=== PATIENT | male | born 1950 | race Two or more races ===

== ENCOUNTER 2023-03-28 23:00 | Emergency (ER) | payer OTHER ==
[~2023-03-28] VITALS: Ht 180.3 cm; Wt 90.8 kg
[2023-03-28 23:42] LABS: Basophils # (auto) 0.1 10 ^3/uL (0-0.2); Basophils % (auto) 0.9 % (0.0-2.0); Eosinophils # (auto) 0.4 10 ^3/uL (0-0.8); Eosinophils % (auto) 5.8 % (0.0-7.0); Hematocrit 47.2 % (41.0-53.0); Hemoglobin 15.7 g/dL (13.5-17.5); Lymphocytes # (auto) 1.7 10 ^3/uL (0.4-5.4); Lymphocytes % (auto) 26.2 % (10.0-50.0); Mean Corpuscular Hemoglobin 29.5 pg (28.0-32.0); Mean Corpuscular Hgb Conc. 33.2 g/dL (32.0-36.0); Mean Corpuscular Volume 88.9 fL (80.0-100.0); Monocytes # (auto) 0.6 10 ^3/uL (0-1.3); Monocytes % (auto) 9.3 % (0.0-12.0); Neutrophils # (auto) 3.8 10 ^3/uL (1.6-8.6); Neutrophils % (auto) 57.8 % (37.0-80.0); Nucleated Red Blood Cells % 0.1 %; Red Blood Cells 5.31 10^6/uL (4.5-5.90); White Blood Cell 6.5 10^3/uL (4.4-10.8)
[2023-03-29 00:05] LABS: INR 0.95 (0.9-1.15); Partial Thromboplastin Time 31.6 SEC (24.5-34.5)
[2023-03-29 00:10] LABS: Alanine Aminotransferase 29 U/L (7-40); Albumin 4.8 g/dL (3.2-4.8); Alkaline Phosphatase 107 U/L (46-116); Anion Gap 7 (5-15); Aspartate Aminotransferase 18 U/L (13-40); BUN/Creatinine Ratio 12.2 (10.0-20.0); Bilirubin, Total 0.7 mg/dL (0.2-1.0); Blood Urea Nitrogen 12 mg/dL (9-23); Calcium 9.2 mg/dL (8.7-10.4); Carbon Dioxide 25 mmol/L (20-30); Chloride 107 mmol/L (98-107); Glucose 114 mg/dL (74-106); Potassium 4.2 mmol/L (3.5-5.1); Sodium 139 mmol/L (136-145)
[2023-03-29 00:11] LABS: Total Protein 7.8 g/dL (5.7-8.2)
[2023-03-29 00:27] LABS: Urine WBC None Seen /hpf (0 - 3)
[2023-03-29 00:46] LABS: COVID19 ANTIGEN SOFIA FIA NEGATIVE (NEGATIVE)
[2023-03-29 00:47] LABS: Urine Bacteria NONE SEEN /hpf (None Seen); Urine Blood Negative /uL (Negative); Urine Clarity Clear (Clear); Urine Color Colorless (Yellow); Urine Protein, UAD Negative (Negative); Urine Specific Gravity 1.009 (1.001-1.035); Urine Urobilinogen Normal (Negative)
[2023-03-29 00:56] LABS: Amphetamine Screen, Urine Neg (NEGATIVE); Barbiturate Scree,Urine Neg (NEGATIVE); Benzodiazephine Screen, Urine Neg (NEGATIVE); Cannabinoid Screen, Urine Neg (NEGATIVE); Cocaine Screen, Urine Neg (NEGATIVE); Opiate Scree,Urine Neg (NEGATIVE); Phencyclidine Screen, Urine Neg (NEGATIVE)
[2023-03-29 00:58] LABS: Rapid Influenza A Negative (Negative); Rapid Influenza B Negative (Negative)
[2023-03-29] MEDS ORDERED: ALBU108A5 IN (01:57)
[2023-03-29] MEDS ORDERED: ASPirin 325 MG TAB PO ONE (03:15)
[2023-03-29] MEDS ORDERED: ENOXAPARIN SOD 100 MG/1 ML SYRINGE SC ONE (03:15)
[2023-03-29] MEDS ORDERED: hydrALAZINE HCL 20 MG/ML VL IV PRN ×2 (04:30→06:45)
[2023-03-29] MEDS ORDERED: ALBUTEROL SULF 2.5 MG/0.5ML(0.5%) NEB SOLN NEB PRN (06:45)
[2023-03-29] MEDS ORDERED: ONDANSETRON HCL 4 MG/2 ML VIAL IV PRN (06:45)
[2023-03-29] MEDS ORDERED: amLODIPine BESYLATE 5 MG TAB PO ONE (07:00)
[2023-03-29 07:10] VITALS: BP 147/80; PULSE 58; RESP 18; TEMP 97.6; O2SAT 97
[2023-03-29 07:49] LABS: Triglycerides 164 mg/dL (< 150)
[2023-03-29 07:50] LABS: LDL Cholesterol 144 mg/dL (< 100)
[2023-03-29 07:51] LABS: Cholesterol 200 mg/dL (< 200); HDL Cholesterol 39 mg/dL (40-59)
[2023-03-29 08:45] VITALS: PULSE 54; RESP 10; TEMP 98.7; O2SAT 99
[2023-03-29] MEDS ORDERED: ASPirin-EC 81 mg tab PO SCH (10:00)
[2023-03-29] MEDS: ENOXAPARIN SOD 100 MG/1 ML SYRINGE SC SCH ×2 (10:00→10:17)
[2023-03-29] MEDS ORDERED: AML5T PO (17:01)
[2023-03-29] MEDS ORDERED: ASPI-543 PO (17:01)
[2023-03-29] MEDS ORDERED: ROSU20TA14 PO (17:13)
[2023-03-29 17:14] VITALS: BP 136/76; PULSE 61; RESP 18; O2SAT 95
[2023-03-29] MEDS ORDERED: ATORVASTATIN 20 MG TAB PO SCH (22:00)
[2023-03-30] MEDS ORDERED: amLODIPine BESYLATE 5 MG TAB PO SCH (10:00)
== END 2023-03-29 17:35 | disposition home or self-care (01) ==
LOC: ER 23:00
DX: R07.89 Other chest pain (principal); R06.02 Shortness of breath; Z79.899 Other long term (current) drug therapy
CPT/HCPCS: 36415; 71045; 80053; 80061; 80307; 81001; 83735; 83880; 84484; 85025; 85379; 85610; 85730; 87426; 87804; 93005; 93306; 96372; 99285; J1650

== ENCOUNTER 2024-06-18 15:52 | Emergency (ER) | payer OTHER ==
[~2024-06-18] VITALS: Ht 180.3 cm; Wt 135.0 kg
[~2024-06-18 15:52] MED LIST: ALBU108A5 IN; AML5T PO; ASPI-543 PO; ROSU20TA14 PO
--- NOTE | 2024-06-18 16:11 | ED.PDOC ---
HPI Comments 73-year-old male who presents to the emergency department with chest pressure and shortness of breath especially at night for the past 3 nights. He states he has been having to get up due to inability to sleep from shortness of breath. He at this time has pressure-like pain, 6/10, nonradiating. He reports 1 week ago he became so dizzy that he fell. He denies full syncope. Denies any recent travel. He has had for the past week and a half family at home has had flu-like symptoms. He has an appointment with his PCP tomorrow. He has a history of COVID in the past. Past medical history also includes hyperlipidemia, hypertension. Denies history of diabetes. Chief Complaint: Chest Pain Time Seen by MD: 15:55 Primary Care Provider: ZAK Allergies: Coded Allergies: NO KNOWN ALLERGIES (Unverified , 03/28/23) Home Meds Active Scripts Rosuvastatin Calcium (Crestor) 20 Mg Tab, 1 TAB PO DAILY, #90 TAB 0 Refills Prov:LAINE BOWENS MD 03/29/23 Aspirin (Aspir-Low) 81 Mg Tab, 81 MG PO DAILY for 90 Days, #90 TAB Prov:LAINE BOWENS MD 03/29/23 Amlodipine Besylate (NORVASC TABLET) 5 Mg Tb, 5 MG PO DAILY for 90 Days, #90 TAB Prov:LAINE BOWENS MD 03/29/23 Albuterol Sulfate (Albuterol Sulfate Hfa) 108 Mcg/Act Aer, 108 MCG IN Q4HP PRN, #1 AER Prov:LUCAS MCCORMACK PAC 03/29/23 Mode of Arrival: Ambulatory Vital Signs Vital Signs Date Time Temp Pulse Resp B/P (MAP) Pulse Ox O2 Delivery O2 Flow Rate FiO2 06/18/24 18:58 97.6 69 18 137/79 (98) 97 97.6 06/18/24 16:17 Room Air Physical Exam General: Awake, alert and oriented. No acute distress. Skin: Skin in warm, dry and intact. Appropriate color for ethnicity. Nailbeds pink with no cyanosis. HEENT: The head is normocephalic and atraumatic. Conjunctivae are clear without exudates or hemorrhage. Sclera is non-icteric. EOM are intact. No signs of nystagmus. Eyelids are normal in appearance without swelling or lesions. Oral mucosa is pink and moist Neck: The neck is supple with normal range of motion. No JVD. Cardiac: Heart rate and rhythm are normal. No murmurs, gallops, or rubs are auscultated. Respiratory: No signs of respiratory distress. Lung sounds are clear in all lobes bilaterally without rales, ronchi, or wheezes. Abdominal: Abdomen is soft, non-tender without distention. Bowel sounds are present and normoactive in all four quadrants. Extremities: Upper and lower extremities are atraumatic in appearance without deformity or edema. Neurological: The patient is awake, alert and oriented to person, place, and time with normal speech. Speech is clear. There is no facial asymmetry. Psychiatric: Appropriate mood and affect. Good judgement and insight. No visual or auditory hallucinations. Review of Systems: REVIEW OF SYSTEMS: No fever, no chills, or fatigue HEENT: No sore throat, no earache, positive congestion, positive rhinorrhea no neck pain. No vision changes Cardiac: Positive chest pain. No palpitations. Lungs: Positive shortness of breath, positive orthopnea, positive cough. GI: Positive nausea, no vomiting, no diarrhea, no constipation, no abdominal pain : No dysuria, frequency, or urgency. No hematuria. Musculoskeletal: No joint pain , no joint swelling, no extremity edema. Positive myalgias Skin: No rash, no itching. Neuro: No headache, positive dizziness, positive general weakness, denies focal weakness Past Medical History PAST MEDICAL HISTORY: Denies Surgical History: Denies all surgeries Family History Family History: Reviewed,noncontributory to illness, No family hx of Cancer, No family hx of DM, No family hx of Heart usman, No family hx of HTN, No family hx ofKidney usman, No family hx of Liver usman, No family hx of Lung usman, No family hx of Stroke Social History Smoker: Non-Smoker Alcohol: Denies ETOH Use Drugs: Denies Drug Use Lives In: Home EKG EKG : Comments EKG independent interpretation sinus rhythm, no STEMI QTC 402, low voltage precordial leads Was a procedure done? Was a procedure done?: No CP Differential Dx Differential Diagnosis: Other (Differential diagnoses considered include acute ischemic coronary syndrome, aortic dissection, cardiac tamponade, mediastinitis, pulmonary embolus, pneumothorax, tension pneumothorax, esophageal rupture, coronary artery vasospasm, myocarditis, pericarditis, pneumonia, pulmonary edema, esophageal tear, pancreatitis, aortic stenosis, dilated cardiomyopathy, hypertrophic cardiomyopathy, mitral valve prolapse, malignancy, pleuritis, pneumomediastinum, primary pulmonary hypertension, cholecystitis, esophageal spasm, esophagus, gastritis, GERD, peptic ulcer disease, costochondritis, fibromyalgia, rib fracture, herpes zoster, radicular syndromes, thoracic outlet syndrome, somatization.) X-Ray, Labs, Meds, VS Vital Signs Date Time Temp Pulse Resp B/P (MAP) Pulse Ox O2 Delivery O2 Flow Rate FiO2 06/18/24 18:58 97.6 69 18 137/79 (98) 97 97.6 06/18/24 18:50 61 06/18/24 16:55 63 06/18/24 16:17 97.5 82 16 112/77 (89) 99 97.5 06/18/24 16:17 82 16 99 Room Air 06/18/24 15:59 98.1 78 16 140/76 (97) 97 06/18/24 15:57 69 Lab Test 06/18/24 18:03 06/18/24 16:15 06/18/24 16:03 Range/Units Troponin I High Sensitivity 20 21 </=54 ng/L Influenza Type A Antigen Negative Negative Influenza Type B Antigen Negative Negative SARS-CoV-2 Antigen (Rapid) Negative NEGATIVE White Blood Count 5.7 4.4-10.8 10^3/uL Red Blood Count 5.28 4.5-5.90 10^6/uL Hemoglobin 15.6 13.5-17.5 g/dL Hematocrit 46.2 41.0-53.0 % Mean Corpuscular Volume 87.5 80.0-100.0 fL Mean Corpuscular Hemoglobin 29.6 28.0-32.0 pg Mean Corpuscular Hemoglobin Concent 33.8 32.0-36.0 g/dL Red Cell Distribution Width 12.8 11.8-14.3 % Platelet Count 304 140-450 10^3/uL Mean Platelet Volume 7.7 6.9-10.8 fL Neutrophils (%) (Auto) 60.1 37.0-80.0 % Lymphocytes (%) (Auto) 26.7 10.0-50.0 % Monocytes (%) (Auto) 10.4 0.0-12.0 % Eosinophils (%) (Auto) 2.3 0.0-7.0 % Basophils (%) (Auto) 0.5 0.0-2.0 % Neutrophils # (Auto) 3.4 1.6-8.6 10 ^3/uL Lymphocytes # (Auto) 1.5 0.4-5.4 10 ^3/uL Monocytes # (Auto) 0.6 0-1.3 10 ^3/uL Eosinophils # (Auto) 0.1 0-0.8 10 ^3/uL Basophils # (Auto) 0 0-0.2 10 ^3/uL Nucleated Red Blood Cells 0.1 % Erythrocyte Sedimentation Rate 4 0-20 mm/hr Sodium Level 138 136-145 mmol/L Potassium Level 4.1 3.5-5.1 mmol/L Chloride Level 106 98-107 mmol/L Carbon Dioxide Level 25 20-31 mmol/L Anion Gap 7 5-15 Blood Urea Nitrogen 14 9-23 mg/dL Creatinine 1.09 0.700-1.30 mg/dL Glomerular Filtration Rate Calc 72 >90 mL/min BUN/Creatinine Ratio 12.8 10.0-20.0 Serum Glucose 107 H 74-106 mg/dL Calcium Level 10.0 8.7-10.4 mg/dL Total Bilirubin 1.0 0.2-1.0 mg/dL Aspartate Amino Transferase (AST) 27 13-40 U/L Alanine Aminotransferase (ALT) 40 7-40 U/L Alkaline Phosphatase 91 46-116 U/L C-Reactive Protein High Sensitivity 0.06 <1.0 mg/dL B-Type Natriuretic Peptide 9.93 0-100 pg/mL Total Protein 7.6 5.7-8.2 g/dL Albumin 4.7 3.2-4.8 g/dL Current Medications Medications (Trade) Dose Ordered Sig/Gloria Route Start Time Stop Time Status Last Admin Aspirin 324 mg ONCE ONCE PO 06/18/24 16:15 06/18/24 16:16 DC 06/18/24 16:17 Acetaminophen (Tylenol Tablet Or Capsule) 1,000 mg ONCE ONCE PO 06/18/24 16:15 06/18/24 16:16 DC 06/18/24 16:17 Sodium Chloride 1,000 ml @ 1,000 mls/hr Q1H ONCE IV 06/18/24 16:15 06/18/24 17:14 DC 06/18/24 16:32 Time of 1ST Reevaluation: 16:07 Reevaluation 1ST: Unchanged Patient Education/Counseling: Need For Follow Up Family Education/Counseling: No Family Present Departure 1 Departure Time of Disposition: 18:49 Impression: Primary Impression: Chest pain Disposition: 01 HOME / SELF CARE / HOMELESS Condition: Stable Additional Instructions: ED DISCHARGE INSTRUCTIONS Instructions: Please read all instructions provided in this packet carefully. Although you have been discharged from the Emergency Department, this does not mean that you have a "clean bill of health". No definitive diagnosis for your symptoms has been made today. It is possible that you are in the process of developing a serious illness. This is why you must return to the ED without fail if any new or worsening symptoms (especially if your symptoms include chest pain, trouble breathing, abdominal pain, fever, headache, confusion, trouble seeing, or trouble walking) Keep appointment with the primary care provider tomorrow as previously scheduled. If you are unable to get an appointment, return to the ED for re-evaluation. CHEST PAIN EDUCATION There are many things that can cause chest pain. Some are not serious and will get better on their own in a few days. But some kinds of chest pain need more testing and treatment. Your doctor may have recommended a follow-up visit in the next few days. If you are not getting better, you may need more tests or treatment. Even though your doctor has released you, you still need to watch for any problems. The doctor carefully checked you, but sometimes problems can develop later. If you have new symptoms or if your symptoms do not get better, get medical care right away. If you have worse or different chest pain or pressure that lasts more than 5 minutes or you passed out (lost consciousness), call 911 or seek other emergency help right away. A medical visit is only one step in your treatment. Even if you feel better, you still need to do what your doctor recommends, such as going to all suggested follow-up appointments and taking medicines exactly as directed. This will help you recover and help prevent future problems. How can you care for yourself at home? Rest until you feel better. Take your medicine exactly as prescribed. Call your doctor if you think you are having a problem with your medicine. Do not drive after taking a prescription pain medicine. When should you call for help? Call 911 if: You passed out (lost consciousness). You have severe difficulty breathing. You have symptoms of a heart attack. These may include: Chest pain or pressure, or a strange feeling in your chest. Sweating. Shortness of breath. Nausea or vomiting. Pain, pressure, or a strange feeling in your back, neck, jaw, or upper belly or in one or both shoulders or arms. Lightheadedness or sudden weakness. A fast or irregular heartbeat. After you call 911, the blow mold operator may tell you to chew 1 adult-strength or 2 to 4 low-dose aspirin. Wait for an ambulance. Do not try to drive yourself. Call your doctor now or seek immediate medical care if: You have any trouble breathing. You have new or different chest pain. You are dizzy or lightheaded, or you feel like you may faint. Watch closely for changes in your health, and be sure to contact your doctor if you do not get better as expected. Current as of: January 01, 2024 Author: [employer] Staff? Comments 73-year-old male with chest pain and shortness of breath. EKG negative for signs of ischemia x 2. High sensitivity troponin negative x 2. CXR shows no acute process. Presentation not suggestive of acute coronary syndrome, pulmonary embolism or aortic dissection. Patient improved at time of discharge. No hypoxia, respiratory distress or dyspnea at discharge. Patient able to ambulate without difficulty. Patient well-appearing, nontoxic. Advised prompt follow-up with PCP, return to the ED with any new, worsening or concerning symptoms. I reviewed the following notes from the pt's past medical encounters: Encounter 03/2023 for NSTEMI The following tests were ordered, and results were reviewed by me: (See diagnostic results section) The following test were independently interpreted by me: EKG, chest x-ray-no acute disease Additional information was gathered from interviewing the following independent historians: (N/A) I reviewed and agreed with the following test results read by other providers: Chest x-ray I discussed treatments and results with medical personnel and: N/A Decision regarding hospitalization or escalation of hospital level of care: Risks and benefits of admission for further treatment of patient's condition was considered however due to patient's stable condition patient will be discharged to follow up closely or return to care for worsening of condition or inability to follow up. Critical Care Note Critical Care Time?: No Stability Stability form required: No Heart Score Heart Score: Heart Score Response (Comments) Value History Slightly Suspicious 0 EKG Normal 0 Age >65 2 Risk Factors 1 or 2 risk factors 1 Troponin Normal limit 0 Total 3 BOZENA GALO MD Jun 18, 2024 16:11
[2024-06-18] MEDS: ACETAMINOPHEN 500 MG TAB or CAP PO ONE (16:17)
[2024-06-18] MEDS: ASPirin 81 mg TAB PO ONE (16:17)
--- NOTE | 2024-06-18 16:19 | DVH ---
CHEST RADIOGRAPH Indication: Chest pain Technique: Single frontal view of the chest was obtained COMPARISON: XY CHEST PORTABLE on DOS: 03/28/23 FINDINGS: Lines and Tubes: None Lungs: Clear Pleura: No effusion. No pneumothorax. Cardiomediastinal contours: Unremarkable Bones: Unremarkable IMPRESSION: No acute disease.
[2024-06-18] MEDS: SODIUM CHLORIDE 0.9% 1,000 ML IV ONE (16:32)
[2024-06-18 16:46] LABS: Basophils # (auto) 0 10 ^3/uL (0-0.2); Basophils % (auto) 0.5 % (0.0-2.0); Eosinophils # (auto) 0.1 10 ^3/uL (0-0.8); Eosinophils % (auto) 2.3 % (0.0-7.0); Hematocrit 46.2 % (41.0-53.0); Hemoglobin 15.6 g/dL (13.5-17.5); Lymphocytes # (auto) 1.5 10 ^3/uL (0.4-5.4); Lymphocytes % (auto) 26.7 % (10.0-50.0); Mean Corpuscular Hemoglobin 29.6 pg (28.0-32.0); Mean Corpuscular Hgb Conc. 33.8 g/dL (32.0-36.0); Mean Corpuscular Volume 87.5 fL (80.0-100.0); Monocytes # (auto) 0.6 10 ^3/uL (0-1.3); Monocytes % (auto) 10.4 % (0.0-12.0); Neutrophils # (auto) 3.4 10 ^3/uL (1.6-8.6); Neutrophils % (auto) 60.1 % (37.0-80.0); Nucleated Red Blood Cells % 0.1 %; Platelet Count (auto) 304 10^3/uL (140-450); Red Blood Cells 5.28 10^6/uL (4.5-5.90); Red Cell Distribution Width 12.8 % (11.8-14.3); White Blood Cell 5.7 10^3/uL (4.4-10.8)
[2024-06-18 16:53] LABS: Albumin 4.7 g/dL (3.2-4.8); Alkaline Phosphatase 91 U/L (46-116); Anion Gap 7 (5-15); Aspartate Aminotransferase 27 U/L (13-40); BUN/Creatinine Ratio 12.8 (10.0-20.0); Blood Urea Nitrogen 14 mg/dL (9-23); Carbon Dioxide 25 mmol/L (20-31); Chloride 106 mmol/L (98-107); Potassium 4.1 mmol/L (3.5-5.1); Sodium 138 mmol/L (136-145); Total Protein 7.6 g/dL (5.7-8.2)
--- NOTE | 2024-06-18 16:53 | ECG ---
[facility] Test Date: 2024-06-18 Test Time: 15:57:27 Pat Name: LINDSEY VILLAGRAN Department: ER Room: Gender: M Manager Field: EDY : 1950 Requested By: BOZENA GALO Order Number: [id number] Reading MD: Measurements Intervals [place] Rate: 69 P: 27 TX: 194 QRS: -1 QRSD: 84 T: 18 QT: 375 QTc: 402 Interpretive Statements Sinus rhythm Low voltage, precordial leads Please click the below link to view image of tracing.
[2024-06-18 16:54] LABS: Alanine Aminotransferase 40 U/L (7-40); Glucose 107 mg/dL (74-106)
[2024-06-18 17:20] LABS: COVID19 ANTIGEN SOFIA FIA NEGATIVE (NEGATIVE); Rapid Influenza A Negative (Negative); Rapid Influenza B Negative (Negative)
[2024-06-18 18:28] LABS: Erythrocyte Sedimentation Rate 4 mm/hr (0-20)
[2024-06-18 18:58] VITALS: BP 137/79; PULSE 69; RESP 18; TEMP 97.6; O2SAT 97
--- NOTE | 2024-06-19 07:18 | ECG ---
[facility] Test Date: 2024-06-18 Test Time: 16:53:27 Pat Name: LINDSEY VILLAGRAN Department: ED Room: Gender: M Top Screw: DANA : 1950 Requested By: BOZENA GALO Order Number: [id number] Reading MD: Measurements Intervals [place] Rate: 65 P: -4 VA: 195 QRS: -12 QRSD: 188 T: -3 QT: 382 QTc: 398 Interpretive Statements Sinus rhythm Nonspecific intraventricular conduction delay Inferior infarct, old Lateral infarct, acute Artifact in lead(s) I,II,III,aVR,aVL,aVF Please click the below link to view image of tracing.
--- NOTE | 2024-06-19 07:18 | ECG ---
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
--- NOTE | 2024-06-19 15:26 | ECG ---
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
== END 2024-06-18 18:58 | disposition home or self-care (01) ==
LOC: ER 15:52
DX: R07.89 Other chest pain (principal); I10 Essential (primary) hypertension; E78.5 Hyperlipidemia, unspecified; Z20.822 Contact with and (suspected) exposure to COVID-19; Z79.82 Long term (current) use of aspirin; Z79.899 Other long term (current) drug therapy
CPT/HCPCS: 36415; 71045; 80053; 83880; 84484; 85025; 85652; 86141; 87426; 87804; 93005; 96360; 99285; J7030

== ENCOUNTER 2024-09-03 08:55 | Inpatient (IN) | payer OTHER ==
[2024-09-03] VITALS (7 sets, daily range): BP systolic 120–147; BP diastolic 71–85; PULSE 55–65; RESP 12–20; TEMP 98–98.3; O2SAT 95–100
[~2024-09-03] VITALS: Ht 180.3 cm; Wt 89.8 kg
[2024-09-03 10:08] LABS: Urine Bacteria None Seen /hpf (None Seen)
[2024-09-03 10:17] LABS: Urine Blood 2+ /uL (Negative); Urine Clarity Clear (Clear); Urine Color Yellow (Yellow); Urine Mucus FEW (None Seen); Urine Protein, UAD TRACE (Negative); Urine Specific Gravity 1.025 (1.001-1.035); Urine Squamous Epithelial Cell FEW /hpf (<5); Urine Urobilinogen Normal (Negative); Urine WBC 1 /HPF (0-3); Urine pH 5.5 (5.0-9.0)
[2024-09-03 10:21] LABS: Basophils # (auto) 0 10 ^3/uL (0-0.2); Basophils % (auto) 0.5 % (0.0-2.0); Eosinophils # (auto) 0.1 10 ^3/uL (0-0.8); Eosinophils % (auto) 1.8 % (0.0-7.0); Hematocrit 46.1 % (41.0-53.0); Hemoglobin 15.8 g/dL (13.5-17.5); Lymphocytes # (auto) 1.5 10 ^3/uL (0.4-5.4); Lymphocytes % (auto) 26.8 % (10.0-50.0); Mean Corpuscular Hemoglobin 30.5 pg (28.0-32.0); Mean Corpuscular Hgb Conc. 34.3 g/dL (32.0-36.0); Mean Corpuscular Volume 88.8 fL (80.0-100.0); Monocytes # (auto) 0.6 10 ^3/uL (0-1.3); Monocytes % (auto) 10.5 % (0.0-12.0); Neutrophils # (auto) 3.4 10 ^3/uL (1.6-8.6); Neutrophils % (auto) 60.4 % (37.0-80.0); Nucleated Red Blood Cells % 0.1 %; Platelet Count (auto) 252 10^3/uL (140-450); Red Blood Cells 5.19 10^6/uL (4.5-5.90); Red Cell Distribution Width 13.4 % (11.8-14.3); White Blood Cell 5.6 10^3/uL (4.4-10.8)
--- NOTE | 2024-09-03 10:31 | ED.PDOC ---
History of Present Illness HPI Comments 73 year old male presents to the ED with a chief complaint of RT eye drooping onset 5 days. Patient states he woke up 5 days ago, noticed RT eye was drooping with blurry vision. Went to see PCP today at 08:00, was sent to ED to rule out CVA. Patient noticed vision improves when he lifts eyelid. He also has been experiencing nasal congestion. Patient recently had a biopsy of prostate, pending results. Denies any PMHx as well as dizziness, headache, chest pain, shortness of breath, nausea, vomiting, diarrhea, fevers, chills. No other symptoms or modifying factors present at this time. Chief Complaint: General Weakness Time Seen by MD: 10:13 Primary Care Provider: BRENDA Beck Notes: Medications, Allergies Allergies: Coded Allergies: NO KNOWN ALLERGIES (Unverified , 03/28/23) Home Meds Active Scripts Rosuvastatin Calcium (Crestor) 20 Mg Tab, 1 TAB PO DAILY, #90 TAB 0 Refills Prov:LAINE BOWENS MD 03/29/23 Aspirin (Aspir-Low) 81 Mg Tab, 81 MG PO DAILY for 90 Days, #90 TAB Prov:LAINE BOWENS MD 03/29/23 Amlodipine Besylate (NORVASC TABLET) 5 Mg Tb, 5 MG PO DAILY for 90 Days, #90 TAB Prov:LAINE BOWENS MD 03/29/23 Albuterol Sulfate (Albuterol Sulfate Hfa) 108 Mcg/Act Aer, 108 MCG IN Q4HP PRN, #1 AER Prov:LUCAS MCCORMACK PAC 03/29/23 Information Source: Patient Mode of Arrival: Ambulatory Severity: Moderate Timing: Days Duration: Since onset Prehospital treatment: None Past Medical History PAST MEDICAL HISTORY: Denies Surgical History: Denies all surgeries Family History Family History: Reviewed,noncontributory to illness, No family hx of Cancer, No family hx of DM, No family hx of Heart usman, No family hx of HTN, No family hx ofKidney usman, No family hx of Liver usman, No family hx of Lung usman, No family hx of Stroke Social History Smoker: Non-Smoker Alcohol: Denies ETOH Use Drugs: Denies Drug Use Lives In: Home Constitutional: denies: chills, diaphoresis, fatigue, fever, malaise, sweats, weakness, others EENTM: reports: blurred vision, nose congestion, others (RT eye drooping); denies: double vision, ear bleeding, ear discharge, ear drainage, ear pain, ear ringing, eye pain, eye redness, hearing loss, mouth pain, mouth swelling, nasal discharge, nose bleeding, nose pain, photophobia, tearing, throat pain, throat swelling, voice changes Respiratory: denies: cough, hemoptysis, orthopnea, SOB at rest, shortness of breath, SOB with excertion, stridor, wheezing, others Cardiovascular: denies: chest pain, dizzy spells, diaphoresis, Dyspnea on exertion, edema, irregular heart beat, left arm pain, lightheadedness, palpitations, PND, syncope, others Gastrointestinal: denies: abdomen distended, abdominal pain, blood streaked bowels, constipated, diarrhea, dysphagia, difficulty swallowing, hematemesis, melena, nausea, poor appetite, poor fluid intake, rectal bleeding, rectal pain, vomiting, others Genitourinary: denies: burning, dysuria, flank pain, frequency, hematuria, incontinence, penile discharge, penile sore, pain, testicle pain, testicle swelling, urgency, others Neurological: denies: dizziness, fainting, headache, left sided numbness, left sided weakness, numbness, paresthesia, pre-existing deficit, right sided numbness, right sided weakness, seizure, speech problems, tingling, tremors, weakness, others Musculoskeletal: denies: back pain, gout, joint pain, joint swelling, muscle pain, muscle stiffness, neck pain, others Integumetry: denies: bruises, change in color, change in hair/nails, dryness, laceration, lesions, lumps, rash, wounds, others Allergic/Immunocompromised: denies: Difficulty Healing, Frequent Infections, Hives, Itching, others Hematologic/Lymphatic: denies: anemia, blood clots, easy bleeding, easy bruising, swollen glands, others Endocrine: denies: excessive hunger, excessive sweating, excessive thirst, excessive urination, flushing, intolerance to cold, intolerance to heat, unexplained weight gain, unexplained weight loss, others Psychiatric: denies: anxiety, bipolar disorder, depression, hopeless, panic disorder, schizophrenia, sleepless, suicidal, others All Other Systems: Reviewed and Negative Physical Exam General Appearance: No Apparent Distress, Normal HEENT: Eye Lid (R) (Ptosis), Pharynx Normal, TMs Normal Neck: Full Range of Motion, Non-Tender, Normal, Normal Inspection Respiratory: Chest Non-Tender, Lungs Clear, No Accessory Muscle Use, No Respiratory Distress, Normal Breath Sounds Cardiovascular: No Edema, No JVD, No Murmur, No Gallop, Normal Peripheral Pulses, Regular Rate/Rhythm Breast Exam: Deferred Gastrointestinal: No Organomegaly, Non Tender, No Pulsatile Mass, Normal Bowel Sounds, Soft Genitalia: Deferred Pelvic: Deferred Rectal: Deferred Extremities: No calf tenderness, Normal capillary refill, Normal inspection, Normal range of motion, Non-tender, No pedal edema Musculoskeletal : Apperance: Normal Neurologic: Alert, saxophone player II-XII nml as Tested, No Motor Deficits, Normal Affect, Normal Mood, No Sensory Deficits Cerebellar Function: Normal Reflexes: Normal Skin: Dry, Normal Color, Warm Lymphatic: No Adenopathy Was a procedure done? Was a procedure done?: No Differential Dx Considerations may include: ACS, CVA, viral syndrome, electrolyte abnormality, pneumonia, uti X-Ray, Labs, Meds, VS Vital Signs Date Time Temp Pulse Resp B/P (MAP) Pulse Ox O2 Delivery O2 Flow Rate FiO2 09/03/24 09:46 98.1 62 18 139/81 (100) 96 98.1 09/03/24 09:46 62 18 96 Room Air* 0 21 09/03/24 09:13 98.1 72 18 142/94 (110) 97 98.1 Lab Test 09/03/24 11:10 09/03/24 10:07 09/03/24 09:59 Range/Units Troponin I High Sensitivity Pending 27 </=54 ng/L White Blood Count 5.6 4.4-10.8 10^3/uL Red Blood Count 5.19 4.5-5.90 10^6/uL Hemoglobin 15.8 13.5-17.5 g/dL Hematocrit 46.1 41.0-53.0 % Mean Corpuscular Volume 88.8 80.0-100.0 fL Mean Corpuscular Hemoglobin 30.5 28.0-32.0 pg Mean Corpuscular Hemoglobin Concent 34.3 32.0-36.0 g/dL Red Cell Distribution Width 13.4 11.8-14.3 % Platelet Count 252 140-450 10^3/uL Mean Platelet Volume 7.4 6.9-10.8 fL Neutrophils (%) (Auto) 60.4 37.0-80.0 % Lymphocytes (%) (Auto) 26.8 10.0-50.0 % Monocytes (%) (Auto) 10.5 0.0-12.0 % Eosinophils (%) (Auto) 1.8 0.0-7.0 % Basophils (%) (Auto) 0.5 0.0-2.0 % Neutrophils # (Auto) 3.4 1.6-8.6 10 ^3/uL Lymphocytes # (Auto) 1.5 0.4-5.4 10 ^3/uL Monocytes # (Auto) 0.6 0-1.3 10 ^3/uL Eosinophils # (Auto) 0.1 0-0.8 10 ^3/uL Basophils # (Auto) 0 0-0.2 10 ^3/uL Nucleated Red Blood Cells 0.1 % Sodium Level 137 136-145 mmol/L Potassium Level 3.8 3.5-5.1 mmol/L Chloride Level 104 98-107 mmol/L Carbon Dioxide Level 24 20-31 mmol/L Anion Gap 9 5-15 Blood Urea Nitrogen 15 9-23 mg/dL Creatinine 1.15 0.700-1.30 mg/dL Glomerular Filtration Rate Calc 67 >90 mL/min BUN/Creatinine Ratio 13.0 10.0-20.0 Serum Glucose 108 H 74-106 mg/dL Calcium Level 10.0 8.7-10.4 mg/dL Urine Color Yellow Yellow Urine Clarity Clear Clear Urine pH 5.5 5.0-9.0 Urine Specific Hewitt 1.025 1.001-1.035 Urine Protein Trace H Negative Urine Ketones Negative Negative Urine Blood 2+ H Negative /uL Urine Nitrite Negative Negative Urine Bilirubin Negative Negative Urine Urobilinogen Normal Negative mg/dL Urine Leukocyte Esterase Negative Negative /uL Urine RBC 122 0 - 3 /hpf Urine Microscopic WBC 1 0-3 /HPF Urine Squamous Epithelial Cells Few <5 /hpf Urine Bacteria None seen None Seen /hpf Urine Mucus Few None Seen Urine Glucose Normal Normal mg/dL [facility] [id number] [facility] [address] Ph: [phone] DIAGNOSTIC IMAGING Diagnostic Imaging Report : [id number] Signed PATIENT: LINDSEY VILLAGRAN ACCT: [id number] UNIT: [id number] : 1950 LOC: ER ROOM / BED: / AGE / SEX: 73 / M ADM STATUS: REG ER SERVICE [id number] ORDERING PHYSICIAN: MAMIE GALVEZ MD PROCEDURE(s): CXRP - CHEST PORTABLE REASON: weakness ORDER NUMBER(s): [id number], ACCESSION NUMBER(s): [id number] INDICATION: weakness TECHNIQUE: Frontal view of the chest. COMPARISON: XY CHEST XRAY 1 VIEW on DOS: 06/18/24, XY CHEST PORTABLE on DOS: 03/28/23 FINDINGS: . The heart and mediastinal contours are grossly unremarkable. There is no evidence of pleural disease. The lungs are clear. The bony structures of the chest are intact without fracture. IMPRESSION: 1. No evidence of acute disease. ATED BY: ASHLIE GIFFORD MD DICTATED DATE/TIME: 09/03/24 1048 SIGNED BY: ASHLIE GIFFORD MD SIGNED DATE/TIME: 09/03/24 1048 CC: [address] [address] Ph: [phone] DIAGNOSTIC IMAGING Diagnostic Imaging Report : [id number] Signed PATIENT: LINDSEY VILLAGRAN ACCT: [id number] UNIT: [id number] : 1950 LOC: ER ROOM / BED: / AGE / SEX: 73 / M ADM STATUS: REG ER SERVICE 1021 ORDERING PHYSICIAN: MAMIE GALVEZ MD PROCEDURE(s): HWOCT - HEAD WITHOUT CONTRAST REASON: right ptosis ORDER NUMBER(s): [id number], ACCESSION NUMBER(s): [id number] EXAM: CT HEAD WITHOUT CONTRAST INDICATION: right ptosis TECHNIQUE: CT of the head without intravenous contrast. Coronal and sagittal reformatted images are submitted. Radiation Dose : 1. Head: CT Dose: CTDI volume is 67.99 mGy. Dose-length product is 1203.62 mGy*cm The dose indicators for CT are the volume Computed Tomography (CT) Dose Index (CTDIvol) and the Dose Length Product (DLP), and are measured in units of mGy and mGy-cm, respectively. These indicators are not patient dose, but values generated from the CT scanner acquisition factors. The report includes radiation exposure data for exposures received during this examination. All CT scans at this medical facility are performed using dose modulation techniques as appropriate to a performed exam including the following: Automated exposure control was utilized; adjustment of the MA and/or KV according to patient size; and use of iterative reconstruction technique. COMPARISON: None FINDINGS: There is no evidence of acute intracranial hemorrhage, extra-axial collection, m ass effect, midline shift, herniation or hydrocephalus. The ventricles, sulci and cisterns are age appropriate. The bhardwaj-white differentiation is intact. The visualized paranasal sinuses and mastoid air cells are clear. No depressed calvarial fracture. The surrounding soft tissues are unremarkable. IMPRESSION: 1. No acute intracranial hemorrhage or mass effect. ATED BY: ABDI GAN MD DICTATED DATE/TIME: 09/03/24 104 SIGNED BY: ABDI GAN MD SIGNED DATE/TIME: 09/03/24 104 CC: Time of 1ST Reevaluation: 10:43 Reevaluation 1ST: Unchanged Patient Education/Counseling: Diagnosis, Treatment, Prognosis Family Education/Counseling: No Family Present Additional Information The following tests were ordered, and results were reviewed by me: BMP,CBC, UA, XY CHEST, TROP -x3, CT HEAD WO CONTRAST I reviewed and agreed with the following test results read by other providers: CT HEAD WO CONTRAST, XY CHEST I discussed treatment and results with medical personnel and: Patient Comprehensive systems review obtained and negative except for what is stated in the HPI. Departure 1 Departure Time of Disposition: 11:28 (Patient presented with chest pain that was concerning for possible STEMI, ACS, PE, Pneumonia, Muscle Strain, COPD, Dissection. Data: 1. I ordered and reviewed the result of at least 3 labs including a CBC, BMP, and Troponin. 2. I independently interpreted the following tests: EKG which shows sinus rhythm a and Chest X-ray which shows benign chest.3. UA also shows hematuriaRisk:This patient has a high risk of morbidity due to further diagnostic testing or treatment and may suffer from an acute cardiac or respiratory disorder. Workup reveals concern for ACS and patient should be admitted for further workup and possible expert consultation. ) Impression: Primary Impression: Acute chest pain Additional Impression: Hematuria Qualified Codes: R31.29 - Other microscopic hematuria Disposition: 09 ADMITTED INPATIENT Admit to: Med Surg Condition: Serious Critical Care Note Critical Care Time?: Yes Critical care comment: Acute chest pain Authorized and Performed by: Mamie Galvez MD Total critical care time: Approximately 37 minutes Due to a high probability of clinically significant, life threatening deterioration, the patient required my highest level of preparedness to intervene emergently and I personally spent this critical care time directly and personally managing the patient. This critical care time included obtaining a history; examining the patient; pulse oximetry; ordering and review of studies; arranging urgent treatment with development of a management plan; evaluation of patient's response to treatment; frequent reassessment; and, discussions with other providers. This critical care time was performed to assess and manage the high probability of imminent, life-threatening deterioration that could result in multi-organ failure. It was exclusive of separately billable procedures and treating other patients and teaching time. Please see my other sections and the rest of the note for further information on patient assessment and treatment. Stability Stability form required: No I personally scribed for MAMIE GALVEZ MD ([email or web address]) on 09/03/24 at 10:31. Electronically submitted by Daina Dubon ([email or web address]). I personally scribed for MAMIE GALVEZ MD ([email or web address]) on 09/03/24 at 10:54. Electronically submitted by Daina Dubon ([email or web address]). MAMIE GALVEZ MD Sep 03, 2024 10:31
[2024-09-03 10:33] LABS: Chloride 104 mmol/L (98-107); Potassium 3.8 mmol/L (3.5-5.1); Sodium 137 mmol/L (136-145)
[2024-09-03 10:34] LABS: Anion Gap 9 (5-15); Carbon Dioxide 24 mmol/L (20-31)
[2024-09-03 10:40] LABS: Blood Urea Nitrogen 15 mg/dL (9-23)
[2024-09-03 10:47] LABS: Glucose 108 mg/dL (74-106)
--- NOTE | 2024-09-03 10:48 | DVH ---
EXAM: CT HEAD WITHOUT CONTRAST INDICATION: right ptosis TECHNIQUE: CT of the head without intravenous contrast. Coronal and sagittal reformatted images are s ubmitted. Radiation Dose : 1. Head: CT Dose: CTDI volume is 67.99 mGy. Dose-length product is 1203.62 mGy*cm The dose indicators for CT are the volume Computed Tomography (CT) Dose Index (CTDIvol) and the Dose Length Product (DLP), and are measured in units of mGy and mGy-cm, respectively. These indicators are not patient dose, but values generated from the CT scanner acquisition factors. The report includes radiation exposure data for exposures received during this examination. All CT scans at this medical facility are performed using dose modulation techniques as appropriate to a performed exam including the following: Automated exposure control was utilized; adjustment of the MA and/or KV according to patient size; and use of iterative reconstruction technique. COMPARISON: None FINDINGS: There is no evidence of acute intracranial hemorrhage, extra-axial collection, mass effect, midline s hift, herniation or hydrocephalus. The ventricles, sulci and cisterns are age appropriate. The bhardwaj-white differentiation is intact. The visualized paranasal sinuses and mastoid air cells are clear. No depressed calvarial fracture. The surrounding soft tissues are unremarkable. IMPRESSION: 1. No acute intracranial hemorrhage or mass effect.
--- NOTE | 2024-09-03 10:50 | DVH ---
INDICATION: weakness TECHNIQUE: Frontal view of the chest. COMPARISON: XY CHEST XRAY 1 VIEW on DOS: 06/18/24, XY CHEST PORTABLE on DOS: 03/28/23 FINDINGS: . The heart and mediastinal contours are grossly unremarkable. There is no evidence of pleural disea se. The lungs are clear. The bony structures of the chest are intact without fracture. IMPRESSION: 1. No evidence of acute disease.
--- NOTE | 2024-09-03 12:15 | DVH ---
Procedure: CT CT AB PEL WO CON-NO ORAL OR IV 09/03/2024 11:33 AM Indication: hematuria Comparison Study: None Technique: Axial images were obtained and reformatted in coronal and sagittal planes. All CT scans at this medical facility are performed using dose modulation techniques as appropriate to a performed e xam including the following: Automated exposure control was utilized; adjustment of the MA and/or KV according to patient size; and use of iterative reconstruction technique. CT Dose: CTDI volume is 0.7 mGy. Dose-length product is 801 mGy*cm FINDINGS: Lower Chest: Unremarkable. Hepatobiliary: Cholelithiasis with no evidence of cholecystitis. No intrahepatic or extrahepatic paloma pratik dilatation. Spleen: Unremarkable. Pancreas: Unremarkable. Adrenal Glands: Unremarkable. tract: The kidneys are normal in size bilaterally without hydronephrosis or nephrolithiasis. A 5 c m partially exophytic cyst is seen arising from the upper pole of the right kidney The urinary bladde r is mildly trabeculated. GI tract: The stomach is grossly normal in appearance. No evidence of small bowel obstruction. The la rge bowel is unremarkable. The appendix is not visualized. No inflammatory change is noted in the rig ht lower quadrant. Lymphatics: No mesenteric, retroperitoneal or periportal lymphadenopathy. Vasculature: The abdominal aorta is normal in caliber. Pelvic Organs: Enlarged prostate, 5.5 cm in largest dimension. Bones/soft tissues: No acute abnormality. Degenerative changes of the lumbar spine noted. Small fat-c ontaining umbilical hernia. Other: None. IMPRESSION: 1. No CT evidence of acute abnormality in the abdomen and pelvis. Specifically, no hydronephrosis, h ydroureter or ureterolithiasis. 2. Large, 5 cm exophytic benign-appearing right renal cysts. No suspicious lesion in this limited une nhanced study. Further evaluation of hematuria with CT urogram could be completed if clinically indic ated. 3. Moderate prostatic hyperplasia with evidence of bladder outlet obstruction. The bladder wall is t rabeculated. 4. Cholelithiasis with no evidence of cholecystitis.
[2024-09-03] MEDS ORDERED: ACETAMINOPHEN 325 MG TAB PO PRN (16:00)
[2024-09-03] MEDS ORDERED: ONDANSETRON HCL 4 MG/2 ML VIAL IV PRN (16:00)
[2024-09-03] MEDS ORDERED: HYDR1CAP27 PO (16:14)
[2024-09-03] MEDS ORDERED: TAMS0.4C39 PO (16:14)
[2024-09-03] MEDS ORDERED: PARO10TA93 PO (16:14)
--- NOTE | 2024-09-03 16:24 | DVHHP2 ---
History of Present Illness Reason for Visit: Right eye drooping, blurry vision, and general weakness History of Present Illness Rodriguez Leyva is a 73-year-old male with past medical history of hypertension, hyperlipidemia, BPH, ACDF at [facility] in [place], prostate biopsy that was done yesterday who presents to the ED for general weakness, right eye drooping, and blurry vision x5 days. Patient states that he sees a urologist regularly in [place]. He reports that he has an enlarged prostate and elevated PSAs. Patient also reports that he is able to void well. Patient reports that he had a prostate biopsy yesterday and has a follow up appointment 2 weeks. Patient denies any recent trauma or injury, chest pain, shortness of breath, fever, chills, recent sick contacts, recent travels, recent ingestion of spoiled food, lightheadedness, dizziness, paresthesia, numbness, tingling, abdominal pain, nausea, vomiting, or diarrhea. Cardiovascular: HTN, hyperipidemia Renal/: Benign prostatic enlarg. Past Surgical History: Other (Prostate biopsy and ACDF) Family History: None Smoke: No ALCOHOL: occassional Drugs: None Lives: with Family Domestic Violence: Neg Review of Systems Constitutional: Yes: Weakness Eyes: Vision change Other Right eye drooping Allergies: Coded Allergies: NO KNOWN ALLERGIES (Unverified , 03/28/23) Medications Current Medications Medications Dose Ordered Sig/Gloria Route Start Time Stop Time Status Last Admin Dose Admin Ondansetron HCl 4 mg Q4HP PRN IV 09/03/24 16:00 UNV Acetaminophen 650 mg Q6HP PRN PO 09/03/24 16:00 UNV Exam Vital Signs Vital Signs Date Time Temp Pulse Resp B/P (MAP) Pulse Ox O2 Delivery O2 Flow Rate FiO2 09/03/24 15:00 98.3 55 12 147/85 (105) 98 98.3 09/03/24 09:46 Room Air* 0 21 General Appearance: Alert, Oriented X3, Cooperative, No acute distress HEENT: Atraumatic, PERRLA, EOMI, Mucous membr. moist/pink Respiratory: Clear to auscultation, Normal air movement Cardiovascular: Normal S1, Normal S2, No murmurs Abdominal: Normal bowel sounds, Soft, No tenderness, No hepatospenomegaly, No masses Extremities: No clubbing, No cyanosis, No edema, Normal pulses, No tenderness/swelling Skin: No significant lesion Neuro: Normal speech, Strength at 5/5 X4 ext, Normal tone, Sensation intact Psych/Mental Status: Mental status NL, Mood NL Labs/Xrays Labs Test 09/03/24 13:18 09/03/24 10:07 09/03/24 09:59 Range/Units Troponin I High Sensitivity 25 </=54 ng/L White Blood Count 5.6 4.4-10.8 10^3/uL Red Blood Count 5.19 4.5-5.90 10^6/uL Hemoglobin 15.8 13.5-17.5 g/dL Hematocrit 46.1 41.0-53.0 % Mean Corpuscular Volume 88.8 80.0-100.0 fL Mean Corpuscular Hemoglobin 30.5 28.0-32.0 pg Mean Corpuscular Hemoglobin Concent 34.3 32.0-36.0 g/dL Red Cell Distribution Width 13.4 11.8-14.3 % Platelet Count 252 140-450 10^3/uL Mean Platelet Volume 7.4 6.9-10.8 fL Neutrophils (%) (Auto) 60.4 37.0-80.0 % Lymphocytes (%) (Auto) 26.8 10.0-50.0 % Monocytes (%) (Auto) 10.5 0.0-12.0 % Eosinophils (%) (Auto) 1.8 0.0-7.0 % Basophils (%) (Auto) 0.5 0.0-2.0 % Neutrophils # (Auto) 3.4 1.6-8.6 10 ^3/uL Lymphocytes # (Auto) 1.5 0.4-5.4 10 ^3/uL Monocytes # (Auto) 0.6 0-1.3 10 ^3/uL Eosinophils # (Auto) 0.1 0-0.8 10 ^3/uL Basophils # (Auto) 0 0-0.2 10 ^3/uL Nucleated Red Blood Cells 0.1 % Sodium Level 137 136-145 mmol/L Potassium Level 3.8 3.5-5.1 mmol/L Chloride Level 104 98-107 mmol/L Carbon Dioxide Level 24 20-31 mmol/L Anion Gap 9 5-15 Blood Urea Nitrogen 15 9-23 mg/dL Creatinine 1.15 0.700-1.30 mg/dL Glomerular Filtration Rate Calc 67 >90 mL/min BUN/Creatinine Ratio 13.0 10.0-20.0 Serum Glucose 108 H 74-106 mg/dL Calcium Level 10.0 8.7-10.4 mg/dL Urine Color Yellow Yellow Urine Clarity Clear Clear Urine pH 5.5 5.0-9.0 Urine Specific [place] 1.025 1.001-1.035 Urine Protein Trace H Negative Urine Ketones Negative Negative Urine Blood 2+ H Negative /uL Urine Nitrite Negative Negative Urine Bilirubin Negative Negative Urine Urobilinogen Normal Negative mg/dL Urine Leukocyte Esterase Negative Negative /uL Urine RBC 122 0 - 3 /hpf Urine Microscopic WBC 1 0-3 /HPF Urine Squamous Epithelial Cells Few <5 /hpf Urine Bacteria None seen None Seen /hpf Urine Mucus Few None Seen Urine Glucose Normal Normal mg/dL Procedure: CT CT AB PEL WO CON-NO ORAL OR IV 09/03/2024 11:33 AM Indication: hematuria Comparison Study: None Technique: Axial images were obtained and reformatted in coronal and sagittal planes. All CT scans at this medical facility are performed using dose modulation techniques as appropriate to a performed exam including the followin g: Automated exposure control was utilized; adjustment of the MA and/or KV according to patient size; and use of iterative reconstruction technique. CT Dose: CTDI volume is 0.7 mGy. Dose-length product is 801 mGy*cm FINDINGS: Lower Chest: Unremarkable. Hepatobiliary: Cholelithiasis with no evidence of cholecystitis. No intrahepatic or extrahepatic ductal dilatation. Spleen: Unremarkable. Pancreas: Unremarkable. Adrenal Glands: Unremarkable. tract: The kidneys are normal in size bilaterally without hydronephrosis or nephrolithiasis. A 5 cm partially exophytic cyst is seen arising from the upper pole of the right kidney The urinary bladder is mildly trabeculated. GI tract: The stomach is grossly normal in appearance. No evidence of small bow el obstruction. The large bowel is unremarkable. The appendix is not visualized. No inflammatory change is noted in the right lower quadrant. Lymphatics: No mesenteric, retroperitoneal or periportal lymphadenopathy. Vasculature: The abdominal aorta is normal in caliber. Pelvic Organs: Enlarged prostate, 5.5 cm in largest dimension. Bones/soft tissues: No acute abnormality. Degenerative changes of the lumbar spine noted. Small fat-containing umbilical hernia. Other: None. IMPRESSION: 1. No CT evidence of acute abnormality in the abdomen and pelvis. Specifically, no hydronephrosis, hydroureter or ureterolithiasis. 2. Large, 5 cm exophytic benign-appearing right renal cysts. No suspicious lesion in this limited unenhanced study. Further evaluation of hematuria with CT urogram could be completed if clinically indicated. 3. Moderate prostatic hyperplasia with evidence of bladder outlet obstruction. The bladder wall is trabeculated. 4. Cholelithiasis with no evidence of cholecystitis. EXAM: CT HEAD WITHOUT CONTRAST INDICATION: right ptosis TECHNIQUE: CT of the head without intravenous contrast. Coronal and sagittal reformatted images are submitted. Radiation Dose : 1. Head: CT Dose: CTDI volume is 67.99 mGy. Dose-length product is 1203.62 mGy*cm The dose indicators for CT are the volume Computed Tomography (CT) Dose Index (CTDIvol) and the Dose Length Product (DLP), and are measured in units of mGy and mGy-cm, respectively. These indicators are not patient dose, but values generated from the CT scanner acquisition factors. The report includes radiation exposure data for exposures received during this examination. All CT scans at this medical facility are performed using dose modulation techniques as appropriate to a performed exam including the following: Automated exposure control was utilized; adjustment of the MA and/or KV according to patient size; and use of iterative reconstruction technique. COMPARISON: None FINDINGS: There is no evidence of acute intracranial hemorrhage, extra-axial collection, mass effect, midline shift, herniation or hydrocephalus. The ventricles, sulci and cisterns are age appropriate. The bhardwaj-white differentiation is intact. The visualized paranasal sinuses and mastoid air cells are clear. No depressed calvarial fracture. The surrounding soft tissues are unremarkable. IMPRESSION: 1. No acute intracranial hemorrhage or mass effect. INDICATION: weakness TECHNIQUE: Frontal view of the chest. COMPARISON: XY CHEST XRAY 1 VIEW on DOS: 06/18/24, XY CHEST PORTABLE on DOS: 03/28/23 FINDINGS: . The heart and mediastinal contours are grossly unremarkable. There is no evidence of pleural disease. The lungs are clear. The bony structures of the chest are intact without fracture. IMPRESSION: 1. No evidence of acute disease. Assessment/Plan Assessment/Plan Assessment General weakness Blurred vision Stroke ruled out Ptosis Sinus bradycardia Large, 5 cm exophytic benign-appearing right renal cysts Moderate prostatic hyperplasia with evidence of bladder outlet obstruction Cholelithiasis with no evidence of cholecystitis History of hypertension History of hyperlipidemia History of BPH History of prostate biopsy History of ACDF at [facility] in [place] Plan Admit to tele Chest x-ray noted CT abdomen and pelvis CT head noted Troponin negative x3 Aspirin Statin Duo nebs PSA Finasteride Home medications reconciled Discussed plan of care with patient and nurse DVT prophylaxis-indicated patient ambulating PUD prophylaxis-not indicated no history of GERD or GI bleed Rounding hospitalist to decide if urology consult needed Patient can have outpatient cystoscopy Plan discussed with: Patient My Orders Orders - MARTHA VICENTE Procedure Category Date Status Time Admit ADMIT 09/03/24 Transmitted 16:00 Allergies DARLYN 09/03/24 In Process 16:00 Code Status CODE 09/03/24 Transmitted 16:00 Ondansetron Hcl PHA 09/03/24 Logged (Zofran) 16:00 Complete Blood Count LAB 09/04/24 Verified 04:00 Comprehensive LAB 09/04/24 Verified Metabolic Panel 04:00 Cardiac DIET 09/03/24 Transmitted Diet-2gna,Lofat,Lochol Dinner Acetaminophen Tablet PHA 09/03/24 Logged (Tylenol Tablet) 16:00 Amlodipine Tablet PHA 09/04/24 Logged (Norvasc Tablet) 10:00 Aspirin Enteric PHA 09/04/24 Transmitted Coated Tablet 10:00 (Nf) Rosuvastatin PHA 09/04/24 Transmitted Calcium (Crestor) 10:00 Date of Service: Sep 03, 2024 Billing Provider: MARTHA VICENTE Common Visit Codes: [id number] INP/OBS CARE (HIGH) MARTHA VICENTE Sep 03, 2024 16:24
[2024-09-03] MEDS ORDERED: IPRATROPIUM BROM 0.5 MG/2.5ML INH SOL NEB PRN (16:45)
[2024-09-03] MEDS ORDERED: ALBUTEROL SULF 2.5 MG/0.5ML(0.5%) NEB SOLN NEB PRN (16:45)
[2024-09-03] MEDS ORDERED: TAMS1CAP25 PO (17:57)
[2024-09-03] MEDS ORDERED: ATOR20TA50 PO (17:57)
[2024-09-03] MEDS: FINASTERIDE 5 MG TAB PO SCH (18:00)
[2024-09-03] MEDS: ATORVASTATIN 20 MG TAB PO SCH (19:57)
[2024-09-04] VITALS (9 sets, daily range): BP systolic 110–136; BP diastolic 63–75; PULSE 53–68; RESP 16–20; TEMP 97.8–98.7; O2SAT 95–100
[2024-09-04 06:43] LABS: Basophils # (auto) 0 10 ^3/uL (0-0.2); Basophils % (auto) 0.5 % (0.0-2.0); Eosinophils # (auto) 0.2 10 ^3/uL (0-0.8); Eosinophils % (auto) 3.6 % (0.0-7.0); Hematocrit 42.6 % (41.0-53.0); Hemoglobin 14.7 g/dL (13.5-17.5); Lymphocytes # (auto) 1.5 10 ^3/uL (0.4-5.4); Lymphocytes % (auto) 26.9 % (10.0-50.0); Mean Corpuscular Hemoglobin 30.1 pg (28.0-32.0); Mean Corpuscular Hgb Conc. 34.4 g/dL (32.0-36.0); Mean Corpuscular Volume 87.6 fL (80.0-100.0); Monocytes # (auto) 0.6 10 ^3/uL (0-1.3); Monocytes % (auto) 10.8 % (0.0-12.0); Neutrophils # (auto) 3.3 10 ^3/uL (1.6-8.6); Neutrophils % (auto) 58.2 % (37.0-80.0); Nucleated Red Blood Cells % 0.1 %; Platelet Count (auto) 244 10^3/uL (140-450); Red Blood Cells 4.87 10^6/uL (4.5-5.90); Red Cell Distribution Width 13.3 % (11.8-14.3); White Blood Cell 5.6 10^3/uL (4.4-10.8)
[2024-09-04 06:48] LABS: Alanine Aminotransferase 22 U/L (7-40); Albumin 4.4 g/dL (3.2-4.8); Alkaline Phosphatase 78 U/L (46-116); Anion Gap 6 (5-15); Aspartate Aminotransferase 19 U/L (13-40); BUN/Creatinine Ratio 17.4 (10.0-20.0); Bilirubin, Total 1.3 mg/dL (0.2-1.0); Blood Urea Nitrogen 19 mg/dL (9-23); Calcium 9.2 mg/dL (8.7-10.4); Carbon Dioxide 27 mmol/L (20-31); Chloride 106 mmol/L (98-107); Glucose 110 mg/dL (74-106); Potassium 4.4 mmol/L (3.5-5.1); Sodium 139 mmol/L (136-145); Total Protein 6.9 g/dL (5.7-8.2)
[2024-09-04 08:07] LABS: PSA Free 4.69 ng/mL; Prostate Specific Antigen 57.7 ng/mL (0.0-4.0)
[2024-09-04] MEDS: ASPirin-EC 81 mg tab PO SCH (09:48)
[2024-09-04] MEDS: TAMSULOSIN HYDROCHLORIDE 0.4 MG CAP PO SCH (09:48)
[2024-09-04] MEDS: amLODIPine BESYLATE 5 MG TAB PO SCH (09:50)
[2024-09-04] MEDS: PARoxetine 20 MG TAB PO SCH (09:50)
[2024-09-04] MEDS ORDERED: IOHEXOL 300 MG/ML 100ML BOTTLE IJ ONE (12:29)
--- NOTE | 2024-09-04 14:04 | DVH ---
Procedure: CT CHEST WITH CONTRAST 09/04/2024 12:40 PM History: r/o poss malignancy Comparison: None Technique: After the uneventful administration of contrast intravenously, CT imaging was performed th rough the chest. Coronal and sagittal reformations were performed by the technologist. 3D image postprocessing was performed on a dedicated workstation and images were used for interpretat ion and reporting. Radiation Dose : CT Dose: CTDI volume is 14.55 mGy. Dose-length product is 571.69 mGy*cm Findings: Lower neck: Normal thyroid. Lungs: No focal consolidation. Heart/Vascular Structures: Cardiomegaly. Coronary artery calcifications. Vascular calcifications of t he aorta. Lymph Nodes: No adenopathy Pleura: No pleural effusion or significant pneumothorax. Musculoskeletal: No acute osseous abnormality. Soft tissues: Normal. Upper abdomen: 1.4 cm hyper dense lesion in the posterior right hepatic lobe is incompletely characte rized but may represent a benign hemangioma. IMPRESSION: No evidence of acute intrathoracic pathology identified. 1.4 cm hyper dense lesion in the posterior right hepatic lobe is incompletely characterized but may r epresent a benign hemangioma. This can be further evaluated with nonemergent CT or MRI liver mass pro tocol if clinically indicated.
--- NOTE | 2024-09-04 14:29 | DVHDS2 ---
Discharge Summary Date of Admission Sep 03, 2024 at 16:00 Date of Discharge: Sep 04, 2024 Admitting Diagnosis ramakrishna syndrome Labs/Diagnostic Data: Laboratory Results Test 09/04/24 05:25 09/03/24 17:09 09/03/24 13:18 09/03/24 09:59 White Blood Count 5.6 10^3/uL (4.4-10.8) Red Blood Count 4.87 10^6/uL (4.5-5.90) Hemoglobin 14.7 g/dL (13.5-17.5) Hematocrit 42.6 % (41.0-53.0) Mean Corpuscular Volume 87.6 fL (80.0-100.0) Mean Corpuscular Hemoglobin 30.1 pg (28.0-32.0) Mean Corpuscular Hemoglobin Concent 34.4 g/dL (32.0-36.0) Red Cell Distribution Width 13.3 % (11.8-14.3) Platelet Count 244 10^3/uL (140-450) Mean Platelet Volume 7.7 fL (6.9-10.8) Neutrophils (%) (Auto) 58.2 % (37.0-80.0) Lymphocytes (%) (Auto) 26.9 % (10.0-50.0) Monocytes (%) (Auto) 10.8 % (0.0-12.0) Eosinophils (%) (Auto) 3.6 % (0.0-7.0) Basophils (%) (Auto) 0.5 % (0.0-2.0) Neutrophils # (Auto) 3.3 10 ^3/uL (1.6-8.6) Lymphocytes # (Auto) 1.5 10 ^3/uL (0.4-5.4) Monocytes # (Auto) 0.6 10 ^3/uL (0-1.3) Eosinophils # (Auto) 0.2 10 ^3/uL (0-0.8) Basophils # (Auto) 0 10 ^3/uL (0-0.2) Nucleated Red Blood Cells 0.1 % Sodium Level 139 mmol/L (136-145) Potassium Level 4.4 mmol/L (3.5-5.1) Chloride Level 106 mmol/L (98-107) Carbon Dioxide Level 27 mmol/L (20-31) Anion Gap 6 (5-15) Blood Urea Nitrogen 19 mg/dL (9-23) Creatinine 1.09 mg/dL (0.700-1.30) Glomerular Filtration Rate Calc 72 mL/min (>90) BUN/Creatinine Ratio 17.4 (10.0-20.0) Serum Glucose 110 mg/dL (74-106) Calcium Level 9.2 mg/dL (8.7-10.4) Total Bilirubin 1.3 mg/dL (0.2-1.0) Aspartate Amino Transferase (AST) 19 U/L (13-40) Alanine Aminotransferase (ALT) 22 U/L (7-40) Alkaline Phosphatase 78 U/L (46-116) Total Protein 6.9 g/dL (5.7-8.2) Albumin 4.4 g/dL (3.2-4.8) Free Prostate Specific Antigen 4.69 ng/mL (N/A) Percent Free Prostate Specific Ag 8.1 % (.) Prostate Specific Antigen Total 57.7 ng/mL (0.0-4.0) Troponin I High Sensitivity 25 ng/L (</=54) Urine Color Yellow (Yellow) Urine Clarity Clear (Clear) Urine pH 5.5 (5.0-9.0) Urine Specific [place] 1.025 (1.001-1.035) Urine Protein Trace (Negative) Urine Ketones Negative (Negative) Urine Blood 2+ /uL (Negative) Urine Nitrite Negative (Negative) Urine Bilirubin Negative (Negative) Urine Urobilinogen Normal mg/dL (Negative) Urine Leukocyte Esterase Negative /uL (Negative) Urine RBC 122 /hpf (0 - 3) Urine Microscopic WBC 1 /HPF (0-3) Urine Squamous Epithelial Cells Few /hpf (<5) Urine Bacteria None seen /hpf (None Seen) Urine Mucus Few (None Seen) Urine Glucose Normal mg/dL (Normal) Other Laboratory Tests 09/04/24 05:25 Brief Hx & Hospital Course: 73 yo M with HTN, HLD, BPH, s/p prostate bx with right eye drooping since 1 week. observed mild anisochoria. 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 CT head was done, negative, CTAP with 4cm exophytic benign appearing renal cyst, BPH with bladder outlet obstruction and cholelithiasis with no cholecystitis. CT chest wiht no mediastinal mass or pancoast tumor. Unlikely dissection with normal BP and no pain. labs relatively normal limits. stable to DC home with follow up with neuro as outpatient. Condition at Discharge: Good Final Diagnosis/Problems List ramakrishna syndrome Discharge Disposition: Home 50 Discharge Statement: "Patient was advised to return to the ER or call 911 if any headaches, dizziness, shortness of breath, chest pain, abdominal pain, bleeding, fevers, or worsening of medical condition. Patient was counseled about treatment plan, medications, possible side effects, patientverbalized understanding. All questions were answered to the best of my ability. This discharge took greater then 30 minutes in planning, reviewing documentation, counseling the patient, and discussing with other team members." ASSESSMENT ASSESSMENT Hospital Course stroke ruled out possible ramakrishna syndrome, follow up with neurology as outpatient MG ruled out HTN HLD BPH with chronic bladder outlet obs cholelithiasis w/o cholecystitis Assessment Date of Service: Sep 04, 2024 Billing Provider: YASH TAMAYO MD Common Visit Codes: 83786-QIC/OBS DISCH DAY >30min YASH TAMAYO MD Sep 04, 2024 14:29
== END 2024-09-04 19:15 | disposition home or self-care (01) | DRG 74 ==
LOC: ER 08:55 → OVERFLOW 16:00 → TELE-CENTR 18:02
PROVIDERS: ADMIT Student in an Organized Health Care Education/Training Program; ATTEND Student in an Organized Health Care Education/Training Program
DX: G90.2 Horner's syndrome (principal); H53.8 Other visual disturbances; R00.1 Bradycardia, unspecified; N40.0 Benign prostatic hyperplasia without lower urinary tract symptoms; N28.1 Cyst of kidney, acquired; N32.0 Bladder-neck obstruction; K80.20 Calculus of gallbladder without cholecystitis without obstruction; N40.1 Benign prostatic hyperplasia with lower urinary tract symptoms; I10 Essential (primary) hypertension; E78.5 Hyperlipidemia, unspecified; R31.29 Other microscopic hematuria; Z79.82 Long term (current) use of aspirin; Z79.51 Long term (current) use of inhaled steroids; Z79.899 Other long term (current) drug therapy
CPT/HCPCS: 36415; 70450; 71045; 71260; 74176; 80048; 80053; 81001; 84154; 84484; 85025; 99291; G0378